=== PATIENT | male | born 1975 | race Caucasian/White ===

== ENCOUNTER 2016-06-30 18:58 | Inpatient (IN) | payer OTHER ==
[~2016-06-30] VITALS: Ht 193 cm; Wt 132.9 kg
[~2016-06-30 18:58] MED LIST: AMIODARONE HCL200 MG PO; ATORVASTATIN CA40 MG PO; CARVEDILOL25 MG PO; COREG25 M1 PO; DIOVAN160 MG PO; FUROSEMIDE80 MG PO; K-DUR20 MEQ PO; LIPITOR40 MG PO; LITE COAT ASPI325 M1 PO; MAGOX 400400 MG PO; METOLAZONE2.5 MG PO; MEXITIL200 MG PO; MORPHINE SULFAT30 M2 PO; MORPHINE SULFAT60 MG PO; NITROSTAT0.4 MG SL; OXYCODONE HCL30 MG PO; PLAVIX75 MG PO; RANEXA500 MG PO; SERTRALINE HCL100 MG PO; SOMA350 MG PO; SPIRONOLACTONE25 MG PO
[2016-06-30 19:26] LABS: HEMATOCRIT 42.1 % (38.0-50.0); MCHC 33.3 G/DL (30.0-36.0); MCV 93.3 FL (86-99); MEAN PLAT.VOLUME 9.9 uM^3 (9.0-12.4); PLATELET COUNT 335 K/uL (156-360); RBC DIS.WIDTH-CV 14.5 % (11.8-14.6); RED BLOOD COUNT 4.51 M/uL (4.00-5.50); WHITE BLOOD COUNT 12.8 K/uL (4.1-10.2)
[2016-06-30 19:36] LABS: CHLORIDE 92 mEq/L (99-109); POTASSIUM 3.4 mEq/L (3.7-5.4); SODIUM 131 mEq/L (136-147)
[2016-06-30 19:37] LABS: GLUCOSE 136 mg/dL (70-99)
[2016-06-30 19:39] LABS: ANION GAP 12 MEQ/L (2-14)
[2016-06-30 19:41] LABS: GFR ESTIMATE (CALCULATED) 48 mL/min/
[2016-06-30 19:42] LABS: UREA NITROGEN (BUN) 30 mg/dL (9-23)
[2016-06-30 19:47] LABS: TROP-I INTERPRETATION NEGATIVE; TROPONIN-I 0.02 ng/mL (0.0-0.30)
[2016-06-30 21:47] LABS: SAMPLE HEMOLYSIS CHECK 0; SAMPLE ICTERIC CHECK 0; SAMPLE LIPEMIA CHECK 0
[2016-06-30 22:17] LABS: C-REACTIVE PROTEIN 144.5 MG/L (0-10)
[2016-06-30] MEDS ORDERED: SSD25GM TP (22:47)
[2016-06-30] MEDS ORDERED: OXYMORPHONE HCL30 MG PO (22:48)
[2016-06-30] MEDS ORDERED: METOLAZONE2.5 MG PO (22:48)
[2016-06-30] MEDS ORDERED: ENTRESTO 24 MG1 EACH PO (22:48)
[2016-06-30] MEDS ORDERED: MAGNESIUM400 M1 PO (22:48)
[2016-07-01 02:10] LABS: D-DIMER ELISA > 4.00 mg/L FEU (< 0.57)
[2016-07-01 02:11] LABS: TROP-I INTERPRETATION NEGATIVE; TROPONIN-I 0.02 ng/mL (0.0-0.30)
[2016-07-01 08:57] LABS: TROP-I INTERPRETATION NEGATIVE; TROPONIN-I 0.02 ng/mL (0.0-0.30)
[2016-07-01 11:54] VITALS: BP 97/60
[2016-07-01 15:29] VITALS: BP 92/53
[2016-07-01 16:12] LABS: INTER. NORMALIZED RATIO 1.4; PROTHROMBIN TIME 14.1 (9.2-11.2); PTT 36.4 (25-32)
[2016-07-01 19:22] VITALS: BP 97/57
[2016-07-02 03:18] LABS: UR CREATININE CONCENTRATION 115.7 MG/DL
[2016-07-02 04:09] VITALS: BP 105/60
[2016-07-02 06:16] LABS: EOSINOPHIL (%) 0.1 % (0-5); HEMATOCRIT 40.2 % (38.0-50.0); IMMATURE GRANULOCYTE (%) 0.4 % (0.0-0.7); INSTRUMENT ABS NEUTROPHIL CT 8.3 K/uL; LYMPHOCYTE COUNT 0.9 K/uL (1.0-2.8); MCH 30.9 PG (29.0-34.0); MCHC 33.3 G/DL (30.0-36.0); MCV 92.6 FL (86-99); MEAN PLAT.VOLUME 9.7 uM^3 (9.0-12.4); MONOCYTE (%) 8.6 % (3-12); MONOCYTE COUNT 0.9 K/uL (0-0.8); NEUTROPHIL (%) 81.7 % (45-76); NEUTROPHIL COUNT 8.3 K/uL (1.8-6.4); PLATELET COUNT 301 K/uL (156-360); RBC DIS.WIDTH-CV 14.3 % (11.8-14.6); RBC DIS.WIDTH-SD 49.1 % (39-53); RED BLOOD COUNT 4.34 M/uL (4.00-5.50); WHITE BLOOD COUNT 10.2 K/uL (4.1-10.2)
[2016-07-02 06:42] LABS: ALKALINE PHOSPHATASE 104 IU/L (3-129); ANION GAP 9 MEQ/L (2-14); CHLORIDE 91 MEQ/L (99-109); GFR ESTIMATE (CALCULATED) 55 mL/min/; GLUCOSE 164 mg/dL (70-99); MAGNESIUM 1.9 mg/dl (1.3-2.7); POTASSIUM 3.5 MEQ/L (3.7-5.4); SAMPLE HEMOLYSIS CHECK 0; SAMPLE ICTERIC CHECK 0; SAMPLE LIPEMIA CHECK 0; SODIUM 127 MEQ/L (136-147); TOTAL BILIRUBIN 1.1 MG/DL (0.0-1.0); UREA NITROGEN (BUN) 44 mg/dL (9-23); URIC ACID 6.6 mg/dL (3.1-9.2)
[2016-07-02 08:06] VITALS: BP 100/62
[2016-07-02 12:46] VITALS: BP 94/62
[2016-07-02 15:34] VITALS: BP 99/53
[2016-07-02 21:12] VITALS: BP 91/50
[2016-07-02 23:43] VITALS: BP 98/60
[2016-07-03] VITALS (7 sets, daily range): BP systolic 90–115; BP diastolic 57–67
[2016-07-03 06:39] LABS: EOSINOPHIL (%) 0 % (0-5); IMMATURE GRANULOCYTE (%) 0.6 % (0.0-0.7); IMMATURE GRANULOCYTE COUNT 0.1 K/uL; INSTRUMENT ABS NEUTROPHIL CT 8.8 K/uL; LYMPHOCYTE COUNT 0.9 K/uL (1.0-2.8); MCH 30.5 PG (29.0-34.0); MCHC 32.7 G/DL (30.0-36.0); MCV 93.2 FL (86-99); MEAN PLAT.VOLUME 9.8 uM^3 (9.0-12.4); MONOCYTE (%) 9.4 % (3-12); NEUTROPHIL (%) 81.4 % (45-76); NEUTROPHIL COUNT 8.8 K/uL (1.8-6.4); PLATELET COUNT 288 K/uL (156-360); RBC DIS.WIDTH-CV 14.4 % (11.8-14.6); RBC DIS.WIDTH-SD 49.3 % (39-53); WHITE BLOOD COUNT 10.8 K/uL (4.1-10.2)
[2016-07-03 07:32] LABS: ANION GAP 11 MEQ/L (2-14); CHLORIDE 92 MEQ/L (99-109); GFR ESTIMATE (CALCULATED) 55 mL/min/; GLUCOSE 130 mg/dL (70-99); POTASSIUM 3.9 MEQ/L (3.7-5.4); SAMPLE HEMOLYSIS CHECK 0; SAMPLE ICTERIC CHECK 0; SAMPLE LIPEMIA CHECK 0; SODIUM 133 MEQ/L (136-147); UREA NITROGEN (BUN) 47 mg/dL (9-23)
[2016-07-04 07:39] VITALS: BP 124/71
[2016-07-04 08:50] LABS: EOSINOPHIL (%) 0.1 % (0-5); HEMATOCRIT 41.5 % (38.0-50.0); IMMATURE GRANULOCYTE (%) 0.6 % (0.0-0.7); IMMATURE GRANULOCYTE COUNT 0.1 K/uL; INSTRUMENT ABS NEUTROPHIL CT 8.5 K/uL; LYMPHOCYTE COUNT 1.5 K/uL (1.0-2.8); MCH 30.4 PG (29.0-34.0); MCHC 32.5 G/DL (30.0-36.0); MCV 93.5 FL (86-99); MEAN PLAT.VOLUME 9.7 uM^3 (9.0-12.4); MONOCYTE (%) 8.8 % (3-12); NEUTROPHIL (%) 77.1 % (45-76); NEUTROPHIL COUNT 8.5 K/uL (1.8-6.4); PLATELET COUNT 279 K/uL (156-360); RBC DIS.WIDTH-CV 14.4 % (11.8-14.6); RBC DIS.WIDTH-SD 49.6 % (39-53); RED BLOOD COUNT 4.44 M/uL (4.00-5.50); WHITE BLOOD COUNT 11.1 K/uL (4.1-10.2)
[2016-07-04 09:08] LABS: ANION GAP 7 MEQ/L (2-14); CHLORIDE 94 MEQ/L (99-109); GFR ESTIMATE (CALCULATED) > 59 mL/min/; GLUCOSE 138 mg/dL (70-99); POTASSIUM 3.2 MEQ/L (3.7-5.4); SAMPLE HEMOLYSIS CHECK 0; SAMPLE ICTERIC CHECK 0; SAMPLE LIPEMIA CHECK 0; SODIUM 136 MEQ/L (136-147); UREA NITROGEN (BUN) 44 mg/dL (9-23)
[2016-07-04 11:11] VITALS: BP 107/60
[2016-07-04] MEDS ORDERED: SENNA LAX8.6 MG PO (11:26)
[2016-07-04] MEDS ORDERED: ZOFRAN4 MG PO (11:27)
[2016-07-04] MEDS ORDERED: MEDROL DOSEPAK4 MG PO (11:27)
[2016-07-04] MEDS ORDERED: LINEZOLID600 MG PO (11:29)
[2016-07-04 21:11] LABS: Neutrophil Cytoplasmic Aby Negative (Negative)
[2016-07-05 13:53] LABS: ANTI-NUCLEAR AB SCRN/RFLX(ANA) EQUIVOCAL (NONREACTIVE)
[2016-07-05 13:55] LABS: CENTROMERE ANTIBODY 13 U/mL (0-99); HISTONE ANTIBODY 32 U/mL (0-99); JO-1 ANTIBODY 13 U/mL (0-99); SCL-70 (SCLERODERMA) ANTIBODY 13 U/mL (0-99); SM (SMITH) ANTIBODY 26 U/mL (0-99); SS-A (SJOGREN'S) ANTIBODY 15 U/mL (0-99); SS-B (SJOGREN'S) ANTIBODY 8 U/mL (0-99)
== END 2016-07-04 15:10 | disposition home or self-care (01) | DRG 540 ==
LOC: EME 18:58 → EDOF 23:59 → 5SOUTH 23:59
PROVIDERS: Internal Medicine; Internal Medicine Nephrology
DX: M86.671 Other chronic osteomyelitis, right ankle and foot (principal); N17.9 Acute kidney failure, unspecified; T50.905A Adverse effect of unspecified drugs, medicaments and biological substances, initial encounter; E87.1 Hypo-osmolality and hyponatremia; E87.6 Hypokalemia; I25.10 Atherosclerotic heart disease of native coronary artery without angina pectoris; I25.5 Ischemic cardiomyopathy; Z95.5 Presence of coronary angioplasty implant and graft; E78.5 Hyperlipidemia, unspecified; G89.29 Other chronic pain; G43.909 Migraine, unspecified, not intractable, without status migrainosus; I11.0 Hypertensive heart disease with heart failure; I50.22 Chronic systolic (congestive) heart failure; R21 Rash and other nonspecific skin eruption; T37.0X5A Adverse effect of sulfonamides, initial encounter; F32.9 Major depressive disorder, single episode, unspecified; M31.0 Hypersensitivity angiitis; K21.9 Gastro-esophageal reflux disease without esophagitis; E66.9 Obesity, unspecified; F12.90 Cannabis use, unspecified, uncomplicated; I87.8 Other specified disorders of veins; L03.115 Cellulitis of right lower limb; Z68.35 Body mass index [BMI] 35.0-35.9, adult; Z95.810 Presence of automatic (implantable) cardiac defibrillator; J45.909 Unspecified asthma, uncomplicated; Z91.19 Patient's noncompliance with other medical treatment and regimen; I48.0 Paroxysmal atrial fibrillation; I15.9 Secondary hypertension, unspecified; E78.2 Mixed hyperlipidemia
CPT/HCPCS: 36415; 71020; 73630; 76770; 78580; 80048; 80053; 80400; 82533 91; 82570; 83605; 83735; 83880; 83935; 84100; 84156; 84300; 84443; 84484; 84550; 85025; 85027; 85379; 85610; 85651; 85730; 86021 90; 86038; 86140; 86235; 87040; 89190; 93005; 93970; 99281; 99285; A6212; A9540; J1170; J1200; J1650; J1940; J1956; J2020; J2930; J3010; J7512